=== PATIENT | female | born 2000 | race Caucasian/White ===

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

== ENCOUNTER 2021-01-17 06:43 | Inpatient (IN) | payer OTHER ==
--- NOTE | 2021-01-17 08:04 | EDPHYS ---
Physician Documentation [facility] Name: Helen Sawyer Age: 20 yrs Sex: Female : 2000 Arrival Date: 01/17/2021 Time: 06:46 Bed 14 Private MD: ED Physician Andrea Oneill HPI: 01/17 08:58 This 20 yrs old Female presents to ER via Ambulatory with complaints of ramya Vomiting, DKA. 08:58 The patient presents to the emergency department with nausea, vomiting. 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 - Social history:: Smoking status: . ROS: 08:59 Eyes: Negative for injury, pain, redness, and discharge, ENT: Negative for injury, ramya pain, and discharge, Neck: Negative for injury, pain, and swelling, Respiratory: Negative for shortness of breath, cough, wheezing, and pleuritic chest pain, Back: Negative for injury and pain, : Negative for injury, bleeding, discharge, and swelling, MS/Extremity: Negative for injury and deformity, Skin: Negative for injury, rash, and discoloration, Neuro: Negative for headache, weakness, numbness, tingling, and seizure, Psych: Negative for depression, anxiety, suicide ideation, homicidal ideation, and hallucinations, Allergy/Immunology: Negative for hives, rash, and allergies, Hematologic/Lymphatic: Negative for swollen nodes, abnormal bleeding, and unusual bruising. 08:59 Constitutional: Positive for body aches, fatigue, malaise, poor PO intake. 08:59 Cardiovascular: Positive for palpitations. 08:59 Respiratory: Positive for cough, "sounds productive". 08:59 Abdomen/GI: Positive for nausea and vomiting, abdominal cramps. Exam: 08:59 Head/Face: Normocephalic, atraumatic. Eyes: Pupils equal round and reactive to light, ramya extra-ocular motions intact. Lids and lashes normal. Conjunctiva and sclera are non-icteric and not injected. Cornea within normal limits. Periorbital areas with no swelling, redness, or edema. ENT: Nares patent. No nasal discharge, no septal abnormalities noted. Tympanic membranes are normal and external auditory canals are clear. Oropharynx with no redness, swelling, or masses, exudates, or evidence of obstruction, uvula midline. Mucous membranes moist. Neck: Trachea midline, no thyromegaly or masses palpated, and no cervical lymphadenopathy. Supple, full range of motion without nuchal rigidity, or vertebral point tenderness. No Meningismus. Chest/axilla: Normal chest wall appearance and motion. Nontender with no deformity. No lesions are appreciated. Back: No spinal tenderness. No costovertebral tenderness. Full range of motion. Female : Normal external genitalia. Skin: Warm, dry with normal turgor. Normal color with no rashes, no lesions, and no evidence of cellulitis. MS/ Extremity: Pulses equal, no cyanosis. Neurovascular intact. Full, normal range of motion. Neuro: Awake and alert, GCS 15, oriented to person, place, time, and situation. Cranial nerves II-XII grossly intact. Motor strength 5/5 in all extremities. Sensory grossly intact. Cerebellar exam normal. Normal gait. Psych: Awake, alert, with orientation to person, place and time. Behavior, mood, and affect are within normal limits. 08:59 Constitutional: The patient appears in obvious distress, mildly distressed, moderately distressed. 08:59 Cardiovascular: Rate: tachycardic, Rhythm: regular, Pulses: Pulses are 4+ in bilateral radial, brachial, femoral, popliteal, posterior tibial and and dorsalis pedis arteries.. Heart sounds: normal, Edema: is not appreciated, JVD: is not appreciated. 08:59 Respiratory: the patient does not display signs of respiratory distress, Respirations: normal, no acute changes, Breath sounds: bronchial sounds, that are mild, Respiratory rate: 22 09:08 ECG was reviewed by the Attending Physician. [facility] Vital Signs: 07:39 BP 139 / 83; Pulse 137; Resp 18 S; Pulse Ox 99% on R/A; Weight 93.89 kg; Height 5 ft. 3 iw in. (160.02 cm); 09:11 BP 129 / 63; Pulse 139; Resp 20 S; Pulse Ox 97% on R/A; jd3 11:16 BP 123 / 54; Pulse 144; Resp 19 S; Pulse Ox 97% on R/A; jd3 07:39 Body Mass Index 36.67 (93.89 kg, 160.02 cm) iw Procedures: 08:59 Peripheral line: by aseptic technique a peripheral line was placed in the right [facility] external jugular vein. MDM: 07:43 Patient medically screened. [facility] 09:03 Differential diagnosis: Nonspecific abd pain, gastritis, viral gastroenteritis, ramya gastroenteritis. Data reviewed: vital signs, nurses notes, lab test result(s), EKG, radiologic studies, plain films. Data interpreted: nurse monitoring: rate is 137 beats/min, rhythm is regular, Pulse oximetry: on room air is 99 %. Test interpretation: by ED physician or midlevel provider: ECG, plain radiologic studies. Counseling: I had a detailed discussion with the patient and/or guardian regarding: the historical points, exam findings, and any diagnostic results supporting the discharge/admit diagnosis, lab results, radiology results, the need for further work-up and treatment in the hospital. 01/17 08:01 Order name: Basic Metabolic Panel 01/17 08:01 Order name: CBC with Diff 01/17 08:01 Order name: LFT's [facility] 01/17 08:01 Order name: Magnesium 01/17 08:01 Order name: NT PRO-BNP 01/17 08:01 Order name: PT-INR 01/17 08:01 Order name: Troponin (emerg Dept Use Only) 01/17 08:01 Order name: Lipase; Complete Time: 10:27 [facility] 01/17 08:01 Order name: Blood Culture Adult (2) 01/17 08:01 Order name: ABG; Complete Time: 09:51 [facility] 01/17 08:01 Order name: Lactate; Complete Time: 10:27 [facility] 01/17 08:01 Order name: Basic Metabolic Panel; Complete Time: 10:27 EDMS 01/17 08:01 Order name: CBC with Automated Diff; Complete Time: 10:27 EDMS 01/17 08:01 Order name: Liver (Hepatic) Function; Complete Time: 10:27 EDMS 01/17 08:01 Order name: Magnesium; Complete Time: 10:27 EDMS 01/17 08:01 Order name: NT PRO-BNP; Complete Time: 10:27 EDMS 01/17 08:01 Order name: Protime (+INR); Complete Time: 09:51 EDMS 01/17 08:02 Order name: Troponin (Emerg Dept Use Only); Complete Time: 10:27 EDMS 01/17 08:51 Order name: Urine Dipstick--Ancillary (enter results) bd 01/17 08:51 Order name: Urine --Ancillary (enter results); Complete Time: 09:30 bd 01/17 08:59 Order name: Procalcitonin; Complete Time: 10:27 bp 01/17 09:45 Order name: CBC Smear Scan; Complete Time: 10:27 EDMS 01/17 10:23 Order name: SARS-COV-2 RT PCR; Complete Time: 10:27 EDMS 01/17 10:41 Order name: Glucose; Complete Time: 11:38 jd3 01/17 13:18 Order name: Lactate Sepsis 2 HR Follow-up EDLA 01/17 13:26 Order name: Glucose zb 01/17 13:30 Order name: BMP zb 01/17 15:08 Order name: Glucose, Ancillary Testing EDLA 01/17 15:08 Order name: Glucose, Ancillary Testing EDLA 01/17 15:08 Order name: Glucose, Ancillary Testing EDLA 01/17 15:20 Order name: Blood Culture EDLA 01/17 16:19 Order name: Basic Metabolic Panel EDLA 01/17 16:56 Order name: ABG Arterial Blood Gas EDLA 01/17 19:35 Order name: Basic Metabolic Panel EDLA 01/17 22:50 Order name: Glucose, Ancillary Testing EDLA 01/17 22:50 Order name: Glucose, Ancillary Testing EDLA 01/17 22:50 Order name: Glucose, Ancillary Testing EDLA 01/17 22:50 Order name: Glucose, Ancillary Testing EDLA 01/17 23:26 Order name: Basic Metabolic Panel EDLA 01/18 00:24 Order name: Glucose, Ancillary Testing EDMS 01/18 01:46 Order name: Glucose, Ancillary Testing EDMS 01/18 03:25 Order name: Glucose, Ancillary Testing EDMS 01/18 05:26 Order name: Glucose, Ancillary Testing EDMS 01/18 05:38 Order name: Basic Metabolic Panel EDMS 01/18 05:38 Order name: Phosphorus EDMS 01/18 05:38 Order name: Magnesium EDMS 01/18 05:40 Order name: CBC with Automated Diff EDMS 01/18 06:51 Order name: Glucose, Ancillary Testing EDMS 01/18 08:15 Order name: Glucose, Ancillary Testing EDMS 01/18 08:16 Order name: Glucose, Ancillary Testing EDMS 01/18 08:44 Order name: Glucose, Ancillary Testing EDMS 01/18 10:08 Order name: Glucose, Ancillary Testing EDMS 01/18 11:21 Order name: Basic Metabolic Panel EDMS 01/18 11:29 Order name: Glucose, Ancillary Testing EDMS 01/18 12:44 Order name: Glucose, Ancillary Testing EDMS 01/18 15:23 Order name: Glucose, Ancillary Testing EDMS 01/18 16:58 Order name: Glucose, Ancillary Testing EDMS 01/18 20:09 Order name: Glucose, Ancillary Testing EDMS 01/19 06:26 Order name: CBC with Automated Diff EDMS 01/19 06:29 Order name: Phosphorus EDMS 01/19 06:29 Order name: Magnesium EDMS 01/17 07:55 Order name: Diet Ada 1800 Deven; Complete Time: 07:56 01/17 08:01 Order name: XRAY Chest (1 view); Complete Time: 09:30 [facility] 01/17 08:01 Order name: EKG; Complete Time: 08:02 [facility] 01/17 08:01 Order name: Cardiac monitoring; Complete Time: 09:04 [facility] 01/17 08:01 Order name: EKG - Nurse/Tech; Complete Time: 09:04 [facility] 01/17 08:01 Order name: IV Saline Lock; Complete Time: 08:56 [facility] 01/17 08:01 Order name: Labs collected and sent; Complete Time: 08:56 [facility] 01/17 08:01 Order name: O2 Per Protocol; Complete Time: 08:14 [facility] 01/17 08:01 Order name: O2 Sat Monitoring; Complete Time: 08:14 [facility] 01/17 08:01 Order name: IV Saline Lock - Large Bore; Complete Time: 08:56 ramya 01/17 08:14 Order name: Urine Dipstick-Ancillary (obtain specimen); Complete Time: 08:58 bp 18 06:34 Order name: Basic Metabolic Panel EDMS 01/19 07:34 Order name: Glucose, Ancillary Testing EDMS 01/19 07:44 Order name: Urine Culture EDMS 01/19 09:04 Order name: Manual Differential EDMS EC:08 Rate is 144 beats/min. Rhythm is regular. QRS [place] is Normal. [place] interval is normal. ramya QRS interval is normal. QT interval is normal. No Q waves. T waves are Normal. No ST changes noted. Clinical impression: Sinus tachycardia. Interpreted by me. Reviewed by me. Administered Medications: 08:45 Drug: NS 0.9% 1000 ml Route: IV; Rate: 1 bolus; Site: right jugular; bp 09:35 Follow up: Response: No adverse reaction; IV Status: Infusion continued upon admission jd3 08:45 Drug: NS 0.9% 1000 ml Route: IV; Rate: 1 bolus; Site: right jugular; bp 09:35 Follow up: Response: No adverse reaction; IV Status: Infusion continued upon admission jd3 08:45 Drug: Rocephin 1 grams Route: IV; Rate: per protocol; Site: right jugular; bp 09:34 Follow up: Response: No adverse reaction; IV Status: Completed infusion jd3 08:45 Drug: Pepcid 20 mg Route: IVP; Site: right jugular; bp 09:34 Follow up: Response: No adverse reaction jd3 08:55 Drug: NS 0.9% 1000 ml Route: IV; Rate: 150 ml/hr; Site: right jugular; bp 09:35 Follow up: Response: No adverse reaction; IV Status: Infusion continued upon admission jd3 09:18 Drug: Insulin Drip - (Insulin Regular Human 100 units, NS 0.9% 100 ml) {Co-Signature: jd3 bp (Moustapha Foster RN).} Route: IV; Rate: 5 units/hr; Site: right jugular; 09:36 Follow up: Response: No adverse reaction; IV Status: Infusion continued upon admission jd3 11:04 Drug: NS 0.9% 1000 ml Route: IV; Rate: 1 bolus; Site: right jugular; jd3 11:04 Drug: Insulin Regular Human 10 units {Co-Signature: bp (Moustapha Foster RN).} Route: IVP; jd3 Site: right jugular; 11:44 Drug: Zofran (Ondansetron) 4 mg Route: IVP; Site: right jugular; jd3 19:51 Drug: Ativan 0.5 mg Route: IVP; Site: right jugular; zb 19:52 Drug: Tylenol 650 mg Route: PO; zb Disposition: 01/17/21 08:03 Hospitalization ordered by Edson Shelton for Inpatient Admission. Preliminary diagnosis are Type 1 diabetes mellitus with ketoacidosis, Vomiting. - Bed requested for [facility] ER HOLD. - Status is Inpatient Admission. ll1 - Condition is Serious. - Problem is new. - Symptoms have improved. Signatures: Dispatcher [employer] EDMS Juvenal Hughes RN RN sg Anderson, Corey, MD MD cha Williams, Irene, RN RN iw Davies, Jonathon, RN RN jd3 Peltier, Brian, RN RN bp Lewis, Lynsay, RN RN [facility] Shruti Ernandez RN RN zb Brian Peltier RN bp Corrections: (The following items were deleted from the chart) 09:45 08:02 CORONAVIRUS+[email or web address] ordered. [facility] EDMS 15:15 08:03 Hospitalization Ordered by Edson Shelton DO for Inpatient Admission. Preliminary iw diagnosis is Type 1 diabetes mellitus with ketoacidosis; Vomiting. Bed requested for Intensive Care Unit. Status is Inpatient Admission. Condition is Serious. Problem is new. Symptoms have improved. [facility] 01/19 13:46 01/17 15:15 01/17/2021 08:03 Hospitalization Ordered by Edson Shelton DO for Inpatient ll1 Admission. Preliminary diagnosis is Type 1 diabetes mellitus with ketoacidosis; Vomiting. Bed requested for [facility] ER HOLD. Status is Inpatient Admission. Condition is Serious. Problem is new. Symptoms have improved. iw
--- NOTE | 2021-01-17 08:04 | ER ---
Nurse's Notes [facility] Name: Helen Sawyer Age: 20 yrs Sex: Female : 2000 Arrival Date: 01/17/2021 Time: 06:46 Bed 14 Private MD: Diagnosis: Type 1 diabetes mellitus with ketoacidosis;Vomiting Presentation: 01/17 07:39 Chief complaint: Parent and/or Guardian states: pt started vomiting around 5 am, BS was iw over 500, hx of dka. Ebola Screen: Patient negative for fever greater than or equal to 101.5 degrees Fahrenheit, and additional compatible Ebola Virus Disease symptoms Patient denies exposure to infectious person. Patient denies travel to an Ebola-affected area in the 21 days before illness onset. No symptoms or risks identified at this time. Initial Sepsis Screen: Does the patient meet any 2 criteria? No. Patient's initial sepsis screen is negative. Does the patient have a suspected source of infection? No. Patient's initial sepsis screen is negative. Risk Assessment: Do you want to hurt yourself or someone else? Patient reports no desire to harm self or others. 07:39 Method Of Arrival: Ambulatory iw 07:39 Acuity: NANCIE 2 iw 09:24 Coronavirus screen: At this time, the client does not indicate any symptoms associated jd3 with coronavirus-19. Onset of symptoms was January 17, 2021. Triage Assessment: 08:00 General: Appears distressed, uncomfortable, obese, Behavior is appropriate for age, bp anxious. Pain: Denies pain. EENT: No deficits noted. Neuro: No deficits noted. Cardiovascular: Rhythm is sinus tachycardia. Respiratory: No deficits noted. GI: Reports nausea, vomiting. : No deficits noted. Derm: No deficits noted. Musculoskeletal: No deficits noted. 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 - Social history:: Smoking status: . Screenin:00 Abuse screen: Denies threats or abuse. Denies injuries from another. Nutritional bp screening: No deficits noted. Tuberculosis screening: No symptoms or risk factors identified. Fall Risk None identified. Assessment: 08:00 General: SEE TRIAGE NOTE. bp 09:09 General: Appears in no apparent distress. uncomfortable, Behavior is cooperative, jd3 anxious. Pain: Complains of pain in abdomen Quality of pain is described as aching. Neuro: Level of Consciousness is awake, alert, obeys commands, Oriented to person, place, time, situation. Cardiovascular: Denies chest pain, Capillary refill < 3 seconds Patient's skin is warm and dry. Respiratory: Airway is patent Respiratory effort is even, unlabored, Respiratory pattern is regular, symmetrical. GI: Abdomen is round non-distended, Reports nausea, vomiting. : No signs and/or symptoms were reported regarding the genitourinary system. EENT: No signs and/or symptoms were reported regarding the EENT system. Derm: Skin is intact, Skin is dry, Skin is normal, Skin temperature is warm. Musculoskeletal: Circulation, motion, and sensation intact. Range of motion: intact in all extremities. 11:17 Reassessment: No changes from previously documented assessment. Patient and/or family jd3 updated on plan of care and expected duration. Pain level reassessed. Patient is alert, oriented x 3, equal unlabored respirations, skin warm/dry/pink. 12:00 General: Appears in no apparent distress. Behavior is cooperative, anxious, special zb needs . Neuro: Level of Consciousness is awake, alert, obeys commands, Oriented to person, place, time, situation. Cardiovascular: Denies chest pain, Capillary refill Patient's skin is warm and dry. Respiratory: Airway is patent Respiratory effort is even, unlabored, Respiratory pattern is regular, symmetrical. GI: Abdomen is non-distended, obese. 12:00 : No signs and/or symptoms were reported regarding the genitourinary system. EENT: No zb signs and/or symptoms were reported regarding the EENT system. Derm: Skin is intact, is healthy with good turgor, Skin is dry, Skin is normal, Skin temperature is warm. Musculoskeletal: Circulation, motion, and sensation intact. Range of motion: intact in all extremities. 12:30 Reassessment: Blood glucose level 499. Insulin increased. zb 13:27 Reassessment: Hospitalist at bedside. zb 19:52 Reassessment: pt c/o of anxiety and headache. reported to hospitalist JAQUAN. ordered zb Ativan and Tylenol. Vital Signs: 07:39 BP 139 / 83; Pulse 137; Resp 18 S; Pulse Ox 99% on R/A; Weight 93.89 kg; Height 5 ft. 3 iw in. (160.02 cm); 09:11 BP 129 / 63; Pulse 139; Resp 20 S; Pulse Ox 97% on R/A; jd3 11:16 BP 123 / 54; Pulse 144; Resp 19 S; Pulse Ox 97% on R/A; jd3 07:39 Body Mass Index 36.67 (93.89 kg, 160.02 cm) iw ED Course: 06:46 Patient arrived in ED. ag3 06:50 Arm band placed on. sg 07:17 Moustapha Foster, RN is Primary Nurse. bp 07:42 Triage completed. iw 07:43 Andrea Oneill MD is Attending Physician. ramya 08:00 Patient has correct armband on for positive identification. Placed in gown. Bed in low bp position. Call light in reach. Side rails up X2. Adult w/ patient. 08:02 Edson Shelton DO is Hospitalizing Provider. ramya 08:13 XRAY Chest (1 view) In Process Unspecified. EDMS 08:45 Inserted saline lock: 18 gauge in right EJ, using aseptic technique. Blood collected. bp 09:55 Notified ED physician of a critical lab result(s). Lactate 2.4. ss 01/18 01:30 Inserted saline lock: 22 gauge in left forearm, using aseptic technique. Patient em admitted, IV remains in place. 04:29 Primary Nurse role handed off by Moustapha Foster, MIGDALIA tt3 04:54 No provider procedures requiring assistance completed. em 07:23 Santosh Diaz, MIGDALIA is Primary Nurse. jl7 08:21 Primary Nurse role handed off by Santosh Diaz, MIGDALIA bd 12:30 Santosh Diaz, MIGDALIA is Primary Nurse. jl7 Administered Medications: 01/17 08:45 Drug: NS 0.9% 1000 ml Route: IV; Rate: 1 bolus; Site: right jugular; bp 09:35 Follow up: Response: No adverse reaction; IV Status: Infusion continued upon admission jd3 08:45 Drug: NS 0.9% 1000 ml Route: IV; Rate: 1 bolus; Site: right jugular; bp 09:35 Follow up: Response: No adverse reaction; IV Status: Infusion continued upon admission jd3 08:45 Drug: Rocephin 1 grams Route: IV; Rate: per protocol; Site: right jugular; bp 09:34 Follow up: Response: No adverse reaction; IV Status: Completed infusion jd3 08:45 Drug: Pepcid 20 mg Route: IVP; Site: right jugular; bp 09:34 Follow up: Response: No adverse reaction jd3 08:55 Drug: NS 0.9% 1000 ml Route: IV; Rate: 150 ml/hr; Site: right jugular; bp 09:35 Follow up: Response: No adverse reaction; IV Status: Infusion continued upon admission jd3 09:18 Drug: Insulin Drip - (Insulin Regular Human 100 units, NS 0.9% 100 ml) {Co-Signature: jd3 bp (Moustapha Foster RN).} Route: IV; Rate: 5 units/hr; Site: right jugular; 09:36 Follow up: Response: No adverse reaction; IV Status: Infusion continued upon admission jd3 11:04 Drug: NS 0.9% 1000 ml Route: IV; Rate: 1 bolus; Site: right jugular; jd3 11:04 Drug: Insulin Regular Human 10 units {Co-Signature: bp (Moustapha Foster RN).} Route: IVP; jd3 Site: right jugular; 11:44 Drug: Zofran (Ondansetron) 4 mg Route: IVP; Site: right jugular; jd3 19:51 Drug: Ativan 0.5 mg Route: IVP; Site: right jugular; zb 19:52 Drug: Tylenol 650 mg Route: PO; zb Outcome: 08:03 Decision to Hospitalize by Provider. ramya 01/18 04:54 Admitted to ER Hold. Please see [facility] for further documentation. em Condition: good Instructed on the need for admit, Demonstrated understanding of instructions. 01/19 13:46 Patient left the ED. ll1 Signatures: Dispatcher [employer] EDAlta Strickland Steven, RN RN Andrea Bella MD MD cha Munoz, Edgar, RN RN Liliya Millan, RN Beryl Colmenares RN MIGDALIA ss Santosh Diaz RN RN jl7 Yusuf Wheeler RN MIGDALIA jMoustapha Glover RN MIGDALIA bp Steff Cisneros Lynsay RN RN ll1 Jose Flynn3 Shruti Ernandez RN RN zb Moustapha Foster RN bp Corrections: (The following items were deleted from the chart) 01/17 13:33 12:00 GI: yolis lagos
[2021-01-17] MEDS ORDERED: NA CHLORIDE 0.9% 3,000 ML ONE (08:38)
[2021-01-17] MEDS ORDERED: CEFTRIAXONE/SWI 1gm 1 GM/10 ML SYR ONE (08:39)
[2021-01-17] MEDS ORDERED: FAMOTIDINE 20 MG/2 ML VIAL IV ONE (08:39)
--- NOTE | 2021-01-17 08:39 | RAD REPORT ---
EXAM DESCRIPTION: RAD - Chest Single View - 01/17/2021 8:13 am CLINICAL HISTORY: COUGH COMPARISON: Portable January 2020 TECHNIQUE: AP portable chest image was obtained 01/17/2021 8:13 am . FINDINGS: Lung volumes are low. Interstitial pattern is similar to comparison. No focal mass or cons olidation. Very minimal degrees of interstitial edema or infiltrate could be masked by the chronic pa ttern. Trachea is midline. Loop recorder overlying the left chest again noted. Heart and vasculature are nor mal. No measurable pleural effusion and no pneumothorax. No acute bony abnormality seen. No acute aor tic findings suspected. IMPRESSION: No acute cardiopulmonary process. Baseline interstitial pattern could mask very minimal interstitial edema or infiltrate. No significant change from comparison study.
[2021-01-17] MEDS ORDERED: INSULIN -REGULAR HUMAN 100 UNIT in NA CHLORIDE 0.9% 100 ML IV ONE (09:00)
[2021-01-17 09:06] LABS: Urine Blood NEGATIVE (NEG); Urine Glucose 2+ (NEG); Urine Protein 1+ (NEG); Urine Specific Gravity 1.025 (1.005-1.030)
[2021-01-17 09:33] LABS: Protime INR 1.02
[2021-01-17 09:43] LABS: Arterial Blood Carboxyhemoglob 1.4 % (0-1.5); Blood Gas Oxyhemoglobin 13.4 % (94-97); Blood O2 Saturation 96.9 % (92-98.5)
[2021-01-17 09:44] LABS: Absolute Lymphocytes (CBC) 2.7 K/uL (0.7-4.9); Basophils % 0.4 % (0-1.3); Hematocrit 42.5 % (36.0-45.0); Lymphocytes % 13.9 % (15.3-44.8); MPV 9.6 fL (7.6-11.3); RBC Red Blood Cell Count 4.84 M/uL (3.86-4.86)
[2021-01-17 10:21] LABS: Blood Morphology Comment NOT SEEN (NOT SEEN); Platelet Estimate INCR; White Blood Cell Scan OK (OK)
[2021-01-17 10:22] LABS: ALT/SGPT 179 U/L (12-78); AST/SGOT 382 U/L (15-37); Alkaline Phosphatase 154 U/L (45-117); BUN Blood Urea Nitrogen 21 mg/dL (7-18); Bicarbonate 7 mmol/L (21-32); Bilirubin Direct 0.2 mg/dL (0-0.2); Bilirubin Total 0.6 mg/dL (0.2-1.0); Glucose Level 844 mg/dL (74-106); Lipase 34 U/L (73-393); Magnesium 2.2 mg/dL (1.8-2.4); NT PRO-BNP 41 pg/mL (<125); Protein, Total 9.1 g/dL (6.4-8.2); Sodium Level 132 mmol/L (136-145); Troponin (Emerg Dept Use Only) < 0.02 ng/mL (0.0-0.045)
[2021-01-17 10:24] LABS: Potassium 5.7 mmol/L (3.5-5.1)
[2021-01-17] MEDS ORDERED: NA CHLORIDE 0.9% 1,000 ML ONE (11:01)
[2021-01-17] MEDS ORDERED: INSULIN -REGULAR HUMAN 50 UNIT/0.5 ML ML ONE (11:01)
[2021-01-17] MEDS ORDERED: ONDANSETRON 4 MG/2 ML VIAL ONE (11:57)
[2021-01-17 13:50] LABS: Potassium 5.7 mmol/L (3.5-5.1)
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
[2021-01-17] MEDS ORDERED: ONDANSETRON 4 MG/2 ML VIAL IV PRN (15:12)
[2021-01-17] MEDS ORDERED: NA CHLORIDE 0.9% 1,000 ML IV ONE (15:12)
[2021-01-17] MEDS: ENOXAPARIN 40 MG/0.4 ML SQ SCH (16:00)
[2021-01-17] MEDS ORDERED: CEFTRIAXONE/SWI 1gm 1 GM/10 ML SYR IVP SCH (16:00)
[2021-01-17 16:53] LABS: Arterial Blood Carboxyhemoglob 1.8 % (0-1.5); Blood Gas Oxyhemoglobin 95.1 % (94-97); Blood O2 Saturation 97.8 % (92-98.5)
[2021-01-17] MEDS: NACHLORIDE 0.45% 1,000 ML IV SCH ×3 (18:27→23:12)
[2021-01-17] MEDS ORDERED: NACHLORIDE 0.45% 1,000 ML IV ONE (18:37)
[2021-01-17 19:35] LABS: Potassium 4.8 mmol/L (3.5-5.1)
[2021-01-17] MEDS ORDERED: ENOXAPARIN 40 MG/0.4 ML SQ ONE (19:36)
[2021-01-17] MEDS ORDERED: D5 0.45 NS 1,000 ML IV ONE (19:36)
[2021-01-17] MEDS ORDERED: LORazepam 2 MG/ML VIAL ONE (19:49)
[2021-01-17] MEDS ORDERED: ACETAMINOPHEN 325 MG TABLET ONE (19:49)
[2021-01-17] MEDS: D5 0.45 NS 1,000 ML IV SCH ×2 (19:55→21:52)
[2021-01-17] MEDS ORDERED: LORazepam 2 MG/ML VIAL IV ONE (20:13)
[2021-01-17] MEDS ORDERED: ACETAMINOPHEN 325 MG TABLET PO ONE (20:16)
[2021-01-17 21:20] VITALS: BMI 36.5
[2021-01-17 23:26] LABS: Potassium 4.3 mmol/L (3.5-5.1)
[2021-01-18] MEDS: NACHLORIDE 0.45% 1,000 ML IV SCH ×5 (03:12→19:12)
[2021-01-18] MEDS ORDERED: D5 0.45 NS 1,000 ML IV ONE ×2 (03:46→10:39)
[2021-01-18] MEDS: D5 0.45 NS 1,000 ML IV SCH ×3 (04:32→17:52)
[2021-01-18 05:27] LABS: Absolute Lymphocytes (CBC) 3.1 K/uL (0.7-4.9); Basophils % 0.8 % (0-1.3); Hematocrit 30.5 % (36.0-45.0); Lymphocytes % 31.7 % (15.3-44.8); MPV 7.7 fL (7.6-11.3); RBC Red Blood Cell Count 3.82 M/uL (3.86-4.86)
[2021-01-18 05:38] LABS: BUN Blood Urea Nitrogen 5 mg/dL (7-18); Bicarbonate 19 mmol/L (21-32); Glucose Level 162 mg/dL (74-106); Magnesium 2.1 mg/dL (1.8-2.4); Phosphorus 1.8 mg/dL (2.5-4.9); Potassium 3.3 mmol/L (3.5-5.1); Sodium Level 144 mmol/L (136-145)
[2021-01-18] MEDS ORDERED: NA CHLORIDE 0.9% 1,000 ML ONE (07:08)
[2021-01-18] MEDS ORDERED: NA CHLORIDE 0.9% 1,000 ML IV ONE (07:14)
[2021-01-18] MEDS: CEFTRIAXONE/SWI 1gm 1 GM/10 ML SYR IVP SCH (09:00)
[2021-01-18] MEDS: ENOXAPARIN 40 MG/0.4 ML SQ SCH (09:00)
[2021-01-18] MEDS ORDERED: ENOXAPARIN 40 MG/0.4 ML SQ ONE (09:09)
[2021-01-18] MEDS ORDERED: CEFTRIAXONE/SWI 1gm 1 GM/10 ML SYR ONE (09:09)
[2021-01-18] MEDS ORDERED: POTASSIUM PHOS IN 0.9 % NACL 15 MMOL/250 ML BAG IV ONE (10:19)
[2021-01-18] MEDS ORDERED: D50W 25 GM/50 ML SYRINGE IV PRN (10:26)
[2021-01-18] MEDS ORDERED: GLUCAGON 1 MG/VIAL IM PRN (10:26)
[2021-01-18] MEDS ORDERED: INSULIN -REGULAR HUMAN 100 UNIT in NA CHLORIDE 0.9% 100 ML IV SCH (10:30)
[2021-01-18] MEDS: KCL 20 MEQ/100 mL IVPB 20 MEQ/100 ML BAG IV SCH ×2 (11:00→13:00)
[2021-01-18 11:21] LABS: BUN Blood Urea Nitrogen 5 mg/dL (7-18); Bicarbonate 20 mmol/L (21-32); Glucose Level 225 mg/dL (74-106); Potassium 3.4 mmol/L (3.5-5.1); Sodium Level 143 mmol/L (136-145)
[2021-01-18] MEDS ORDERED: KCL 20 MEQ/100 mL IVPB 20 MEQ/100 ML BAG IV ONE (11:25)
[2021-01-18] MEDS: INSULIN GLARGINE 100 UNITS/ML SQ SCH ×2 (12:22→20:48)
--- NOTE | 2021-01-18 12:27 | P.PN ---
Subjective Date of Service: 01/18/21 Primary Care Provider: unknown Chief Complaint: Nausea and vomiting Subjective: Other (Patient more alert. Patient appears better hydrated.) Physical Examination - Vital Signs Temperature: 97.7 F Blood Pressure: 130/90 Pulse: 107 Respirations: 20 Pulse Ox (%): 100 - Studies Laboratory Data (last 24 hrs) 01/17/21 12:52: Sodium 140, Potassium 5.7 H*, BUN 17, Creatinine 1.29, Glucose 514 H* 01/17/21 12:52: Glucose 513 H* Microbiology Data (last 24 hrs): 01/17/21 08:55 Blood - Blood Anaerobic Blood Culture - Final 01/17/21 08:55 Blood - Blood Anaerobic Blood Culture - Final Assessment & Plan Discharge Plan: Home Plan to discharge in: 24 Hours Physician Review Additional Text: Physical exam: Patient alert, cooperative. Heart: Mild sinus tachycardia Lungs: Clear Abdomen: Soft nontender nondistended Extremities: Good range motion to the upper extremities. Mentation: Flat affect. Impression: Nausea, vomiting secondary to diabetic ketoacidosis with history of type 1 diabetes Elevated lactate and procalcitonin likely related to above Severe dehydration Autism Depression with anxiety Plan: Patient given IV fluid bolus in the morning. Repeat BMP shows DKA resolved. Will continue with transition of DKA orders. Will give Lantus 20 units subcu twice daily. After 1 hr will discontinue IV fluids and IV insulin. Will monitor Accu-Cheks closely then transition to AC HS. Aggressive sliding scale in place. If stable patient can be transferred to the medical floor. Will reassess later. Continue with IV antibiotic therapy. Suspect no indication of infection. Will consider discontinuation of this medication. Anticipate improvement over the next 24 hr with possible discharge. Case discussed with mother. Time Spent Managing Pts Care (In Minutes): 55
[2021-01-18] MEDS ORDERED: INSULIN GLARGINE 100 UNITS/ML SQ ONE ×2 (13:29→21:02)
--- NOTE | 2021-01-18 14:39 | EKG ---
Test Date: 2021-01-17 Test Time: 09:05:38 Plater Supervisor: [place] MEASUREMENT RESULTS: Intervals: Rate: 144 GA: 112 QRSD: 88 QT: 300 QTc: 464 [place]: P: 76 GA: 112 QRS: 10 T: 69 INTERPRETIVE STATEMENTS: Sinus tachycardia Possible Anterior infarct, age undetermined Abnormal ECG Compared to ECG 02/03/2020 19:46:23 No significant changes Electronically Signed On 01-18-21 14:37:41 [employer] by Celio Muller
[2021-01-18] MEDS: INSULIN -REGULAR HUMAN 50 UNIT/0.5 ML ML SQ SCH ×2 (16:30→20:48)
[2021-01-18] MEDS ORDERED: INSULIN -REGULAR HUMAN 50 UNIT/0.5 ML ML ONE ×2 (17:43→21:03)
[2021-01-18] MEDS ORDERED: D50W 25 GM/50 ML VIAL IV PRN (18:00)
[2021-01-18] MEDS ORDERED: ACETAMINOPHEN 325 MG TABLET PO PRN (21:33)
[2021-01-18] MEDS ORDERED: ACETAMINOPHEN 325 MG TABLET ONE (21:54)
[2021-01-19] MEDS ORDERED: BUSPIRONE HCL 15 MG TABLET PO PRN (00:28)
[2021-01-19] MEDS ORDERED: BUSPIRONE HCL 5 MG TABLET ONE (01:25)
[2021-01-19 06:09] LABS: Absolute Lymphocytes (CBC) 3.2 K/uL (0.7-4.9); Basophils % 0.9 % (0-1.3); Hematocrit 31.1 % (36.0-45.0); Lymphocytes % 56.4 % (15.3-44.8); MPV 7.7 fL (7.6-11.3); RBC Red Blood Cell Count 3.95 M/uL (3.86-4.86)
[2021-01-19 06:22] LABS: Magnesium 1.9 mg/dL (1.8-2.4); Phosphorus 2.9 mg/dL (2.5-4.9)
[2021-01-19 06:34] LABS: BUN Blood Urea Nitrogen 2 mg/dL (7-18); Bicarbonate 23 mmol/L (21-32); Glucose Level 98 mg/dL (74-106); Potassium 3.1 mmol/L (3.5-5.1); Sodium Level 145 mmol/L (136-145)
[2021-01-19] MEDS: INSULIN -REGULAR HUMAN 50 UNIT/0.5 ML ML SQ SCH (07:30)
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
[2021-01-19] MEDS ORDERED: INSULIN GLARGINE 100 UNITS/ML SQ ONE (08:17)
[2021-01-19] MEDS ORDERED: CEFTRIAXONE/SWI 1gm 1 GM/10 ML SYR ONE (08:18)
[2021-01-19] MEDS ORDERED: ENOXAPARIN 40 MG/0.4 ML SQ ONE (08:18)
[2021-01-19] MEDS ORDERED: POTASSIUM CL SA 10 MEQ TAB PO ONE ×2 (08:22→09:00)
[2021-01-19] MEDS: CEFTRIAXONE/SWI 1gm 1 GM/10 ML SYR IVP SCH (08:35)
[2021-01-19] MEDS: ENOXAPARIN 40 MG/0.4 ML SQ SCH (08:35)
[2021-01-19] MEDS: INSULIN GLARGINE 100 UNITS/ML SQ SCH (08:37)
[2021-01-19 09:02] LABS: Platelet Estimate ADEQ
[2021-01-19 09:04] LABS: Blood Morphology Comment NOT SEEN (NOT SEEN)
[2021-01-19 10:19] VITALS: BP 123/72; TEMP 98.8; O2SAT 99
== END 2021-01-19 11:20 | disposition home or self-care (01) | DRG 638 ==
LOC: ER 06:43 → ERHOLD 14:33
PROVIDERS: ADMIT Family Medicine; ATTEND Family Medicine
PROC: 05HY33Z Insertion of Infusion Device into Upper Vein, Percutaneous Approach (ICD-10-PCS; principal; 2021-01-17)
DX: E10.10 Type 1 diabetes mellitus with ketoacidosis without coma (principal); F84.0 Autistic disorder; F41.8 Other specified anxiety disorders; E86.0 Dehydration; R79.89 Other specified abnormal findings of blood chemistry; Z88.1 Allergy status to other antibiotic agents; Z88.8 Allergy status to other drugs, medicaments and biological substances; Z79.4 Long term (current) use of insulin; Z79.899 Other long term (current) drug therapy; Z20.822 Contact with and (suspected) exposure to COVID-19
CPT/HCPCS: 36415; 71045; 80048; 80076; 81003; 81025; 82805; 82947; 83605; 83690; 83735; 83880; 84100; 84145; 84484; 85025; 85610; 87040; 87086; 87088; 87205; 93005; 96365; 96375; 99285; J0696; J1650; J1815; J2405; J3480; J7030; J7799; U0003